=== PATIENT | female | born 2000 | race Caucasian/White ===

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

== ENCOUNTER 2023-04-15 18:52 | Emergency (ER) | payer BC, OTHER ==
[2023-04-15] MEDS ORDERED: Morphine 4 MG/ML VIAL ONE ×2 (19:15→20:34)
[2023-04-15] MEDS ORDERED: Ondansetron PF 4 MG/2 ML Vial ONE (19:15)
[2023-04-15] MEDS ORDERED: Acetaminophen 325 MG TAB ONE (19:15)
[2023-04-15 19:35] LABS: #Basophils 0.1 thou/uL (0.0-0.2); #Eosinphils 0.1 thou/uL (0.0-0.7); #Monocytes 0.4 thou/uL (0.11-0.59); #Neutrophils 4.5 thou/uL (1.40-6.50); %Basophils 0.7 % (0.0-1.0); %Eosinophils 1.1 % (0.0-10.0); %Lymphocytes 31.5 % (21.0-51.0); %Monocytes 5.6 % (0.0-10.0); %Neutrophils 60.8 % (42.0-75.0); Hematocrit 39.5 % (36.0-47.0); Hemoglobin 13.1 g/dL (12.0-16.0); Mean Corpuscular HGB CONC 33.2 g/dL (32.0-36.0); Mean Corpuscular Hemoglobin 30.5 pg (27.0-31.0); Mean Corpuscular Volume 91.9 fl (78.0-98.0); Mean Platelet Volume 11.1 fL (7.4-10.4); Platelet Count 226 10x3/uL (130-400); RBC Distribution Width 12.9 % (11.5-14.5); White Blood Cell (WBC) Count 7.4 10x3/uL (4.8-10.8)
[2023-04-15 19:58] LABS: BHCG - Serum Negative (NEGATIVE); Pregs Control Background? CLEAR/WHITE (CLR/WHITE); Pregs Control Bar Appear? YES (CONTROL BAR)
[2023-04-15 20:05] LABS: ALT (SGPT) 13 U/L (8-55); AST (SGOT) 16 U/L (5-34); Albumin 4.4 g/dL (3.5-5.0); Alkaline Phosphatase 42 U/L (40-110); Anion Gap 17 mmol/L (10-20); BUN (Urea Nitrogen) 13 mg/dL (7.0-18.7); Bilirubin, Total 0.5 mg/dL (0.2-1.2); Calc. Creatinine Clearance 0 mL/min (70-130); Calcium 9.3 mg/dL (7.8-10.44); Carbon Dioxide 20 mmol/L (22-29); Chloride 106 mmol/L (98-107); Estimated GFR 109; Globulin 3.1 g/dL (2.4-3.5); Glucose 88 mg/dL (70-105); Protein, Total 7.5 g/dL (6.0-8.3); Sodium 139 mmol/L (136-145)
[2023-04-15] MEDS ORDERED: fentaNYL 50 mcg/mL 1 mL Vial ONE (22:16)
[2023-04-15] MEDS ORDERED: Ketorolac Tromethamine 30 MG (1 mL) VIAL ONE (22:17)
[2023-04-15] MEDS ORDERED: Cyclobenzaprine 10 MG TAB ONE (23:28)
== END 2023-04-15 23:46 | disposition home or self-care (01) ==
LOC: ERS 18:52
DX: S29.9XXA Unspecified injury of thorax, initial encounter (principal); V89.2XXA Person injured in unspecified motor-vehicle accident, traffic, initial encounter; W22.12XA Striking against or struck by front passenger side automobile airbag, initial encounter
CPT/HCPCS: 36415; 70450; 71250; 72125; 74177; 80053; 84703; 85025; 93005; 96374; 96375; 96376; J1885; J2270; J2405; J3010